=== PATIENT | female | born 1980 | race Caucasian/White ===

== ENCOUNTER 2016-10-04 14:13 | Emergency (ER) | payer SELFPAY ==
[2016-10-04 14:19] VITALS: BP 108/72
--- NOTE | 2016-10-04 15:04 | DR.GENAD ---
HPI - PCP Primary Care Physician: KAM - Complaint/Symptoms Chief Complaint Doctors Comments: "I feel weak all over." Chief Complaint:: PT. STATES YESTERDAY SHE HAD AN EPISODE OF CHEST PAIN THAT RADIATED TO HER JAW AND HER NECK. PT. C/O FATIGUE, WEAKNESS, AND A SORE THROAT TODAY. - Nurses notes reviewed Nurses Notes Review: Yes - Source History Provided: Patient - Mode of Arrival Mode of Arrival: Ambulatory - Timing Onset of Chief Complaint: 10/03/16 Came on: Suddenly - Duration Duration: Constant Duration: Days - Severity Severity: Moderate - Modifying Factors Worsens:: activity PMH - PMH Past Medical History: Yes Past Medical History: Anxiety, GERD Past Medical History Comment: OVARIAN CYST Past Surgical History: Yes Surgical History: , Hysterectomy Past Surgical History Comment: PARTIAL HYSTERECTOMY - Family History History of Family Medical Conditions: No - Social History Does patient currently use any type of tobacco product: Yes Have you used tobacco products in the last 12 months: Yes Type of Tobacco Use: Cigarettes Does any household member use tobacco: No Alcohol Use: None Do you use any recreational Drugs:: Yes (MARIJUANA) Lives With: Family Lives Where: Home - infectious screening In the last 2 months have you had wt loss of >10#?: NO Have you had fever, night sweats or hemotysis?: No Have you traveled outside the country in the last 6 months?: No Isolation: Standard ROS - Review of Systems Constitutional: Malaise, Weakness, Loss of Appetite Eyes: No Symptoms Reported ENTM: No Symptoms Reported Respiratoy: No Symptoms Reported Cardiovascular: No Symptoms Reported Gastrointestinal/Abdominal: No Symptoms Reported Genitourinary: No Symptoms Reported Neurological: No Symptoms Reported Musculoskeletal: No Symptoms Reported Integumentary: No Symptoms Reported Hematologic/Lymphatic: No Symptoms Reported Endocrine: No Symptoms Reported Psychiatric: No Symptoms Reported All Other Systems: Reviewed and Negative PE - Vital Signs Vitals: Temperature 98.0 F Pulse Rate 82 Respiratory Rate 17 Blood Pressure 108/72 O2 Sat by Pulse Oximetry 98 - General Limitations: No Limitations General Appearance: Alert, In No Apparent Distress - Head Head Exam: Normal Inspection - Eyes Eye exam: Normal Appearance, PERRL, EOMI - ENT ENT Exam: Normal Exam, Normal Oropharynx, Mucous Membranes Moist Nose Exam: Normal Nose Exam Mouth Exam: Normal Inspection Throat Exam: Normal Inspection - Neck Neck Exam: Normal Inspection, Full ROM, Trachea Midline - Chest Chest Inspection: Normal Inspection - Respiratory Respiratory Exam: Normal Lung Sounds Bilat - Cardiovascular Cardiovascular Exam: Regular Rate, Normal Rhythm, Normal Heart Sounds - Abdominal Exam Abdominal Exam: Normal Inspection, Normal Bowel Sounds, Soft - Extremities Extremities Exam: Normal Inspection, Full ROM - Back Back Exam: Normal Inspection, Full ROM - Psychiatric Psychiatric Exam: Normal Affect, Normal Mood - Skin Skin Exam: Warm, Dry, Intact ROR - Labs Reviewed Result Diagrams: 10/04/16 14:57 10/04/16 14:57 Laboratory: WBC 8.8 X10^3/uL (3.6-10.0) 10/04/16 14:57 RBC 4.51 X10^6/uL (3.5-5.4) 10/04/16 14:57 Hgb 14.7 g/dL (12.0-16.0) 10/04/16 14:57 Hct 42.9 % (36.0-47.0) 10/04/16 14:57 MCV 95.1 fL (80.0-100.0) 10/04/16 14:57 MCH 32.7 pg (27.0-34.0) 10/04/16 14:57 MCHC 34.3 g/dL (33.0-35.0) 10/04/16 14:57 RDW 13.0 % (11.6-16.5) 10/04/16 14:57 Plt Count 248 X10^3/uL (150.0-450.0) 10/04/16 14:57 MPV 7.7 fL (7.4-11.0) 10/04/16 14:57 Neut % 60.9 % (42.0-75.0) 10/04/16 14:57 Lymph % 29.0 % (21.0-51.0) 10/04/16 14:57 Sterling % 7.5 % (0.0-13.0) 10/04/16 14:57 Eos % 1.8 % (0.9-2.9) 10/04/16 14:57 Baso % 0.8 % (0.2-1.0) 10/04/16 14:57 Neut # 5.3 x10^3/uL (2.2-4.8) H 10/04/16 14:57 Lymph # 2.5 X10^3/uL (1.3-2.9) 10/04/16 14:57 Sterling # 0.7 x10^3/uL (0.3-0.8) 10/04/16 14:57 Eos # 0.2 x10^3/uL (0.0-0.2) 10/04/16 14:57 Baso # 0.1 X10^3/uL (0.0-0.1) 10/04/16 14:57 Absolute Nucleated RBC 0.0 /100WBC 10/04/16 14:57 Sodium 140 mmol/L (136-145) 10/04/16 14:57 Corrected Sodium TNP 10/04/16 14:57 Potassium 3.6 mmol/L (3.5-5.1) 10/04/16 14:57 Chloride 104 mmol/L (98-107) 10/04/16 14:57 Carbon Dioxide 25.1 mmol/L (21-32) 10/04/16 14:57 BUN 17 mg/dL (7-18) 10/04/16 14:57 Creatinine 1.00 mg/dL (0.55-1.02) 10/04/16 14:57 Est GFR (MDRD) Af Amer > 60 (>60) 10/04/16 14:57 Est GFR (MDRD) Non-Af > 60 (>60) 10/04/16 14:57 Glucose 79 mg/dL (65-99) 10/04/16 14:57 Calcium 8.7 mg/dL (8.5-10.1) 10/04/16 14:57 Corrected Calcium TNP 10/04/16 14:57 Total Bilirubin 0.40 mg/dL (0.2-1.0) 10/04/16 14:57 AST 16 Units/L (15-37) 10/04/16 14:57 ALT 18 Units/L (12-78) 10/04/16 14:57 Alkaline Phosphatase 55 Units/L (46-116) 10/04/16 14:57 Creatine Kinase 155 Units/L (26-192) 10/04/16 14:57 CK-MB (CK-2) < 1.0 ng/mL (0-4.0) 10/04/16 14:57 CK/CKMB % Calc 0.7 % (<4) 10/04/16 14:57 Troponin I < 0.02 ng/mL (0-1.5) 10/04/16 14:57 Total Protein 7.8 g/dL (6.4-8.2) 10/04/16 14:57 Albumin 4.5 g/dL (3.4-5.0) 10/04/16 14:57 Globulin 3.3 g/dL (2.5-4.5) 10/04/16 14:57 Albumin/Globulin Ratio 1.4 Ratio (1.1-2.1) 10/04/16 14:57 Specimen Type Clean catch urine 10/04/16 14:55 Urine Color Yellow (YELLOW) 10/04/16 14:55 Urine Appearance Cloudy (CLEAR) 10/04/16 14:55 Urine pH 7.0 (5.0 - 8.0) 10/04/16 14:55 Ur Specific [place] 1.015 (1.000-1.030) 10/04/16 14:55 Urine Protein Negative (NEGATIVE) 10/04/16 14:55 Urine Glucose (UA) Negative (NEGATIVE) 10/04/16 14:55 Urine Ketones Negative (NEGATIVE) 10/04/16 14:55 Urine Occult Blood 1+ (NEGATIVE) 10/04/16 14:55 Urine Nitrite Negative (NEGATIVE) 10/04/16 14:55 Urine Bilirubin Negative (NEGATIVE) 10/04/16 14:55 Urine Urobilinogen Normal (NORMAL) 10/04/16 14:55 Ur Leukocyte Esterase Negative (NEGATIVE) 10/04/16 14:55 Urine RBC Rare /HPF (NEGATIVE) 10/04/16 14:55 Urine WBC None seen /HPF (NEGATIVE) 10/04/16 14:55 Ur Squamous Epith Cells Moderate /HPF (NEGATIVE) 10/04/16 14:55 Amorphous Sediment 4+ /HPF (NEGATIVE) 10/04/16 14:55 Urine Bacteria Trace /HPF (NEGATIVE) 10/04/16 14:55 Ur Culture Indicated? No/not indicated 10/04/16 14:55 Monoscreen Negative (NEGATIVE) 10/04/16 14:57 Streptococcus Screen Negative (NEGATIVE) 10/04/16 14:42 - Diagnosis Discharge Problem: Fatigue, Malaise and fatigue - Discharge Plan Disposition: 01 HOME, SELF-CARE Condition: Stable - Follow ups/Referrals Follow ups/Referrals: NFD,None [Primary Care Provider] - 3 days - Instructions Instructions: Panic Attacks, [id number], Rehydration, Adult, Panic Attacks
[2016-10-04 15:06] LABS: BILIRUBIN,URINE NEGATIVE (NEGATIVE); BLOOD/HEMOGLOBIN,URINE 1+ (NEGATIVE); GLUCOSE, URINE NEGATIVE (NEGATIVE); KETONES,URINE NEGATIVE (NEGATIVE); LEUKOCYTE ESTERASE ,URINE NEGATIVE (NEGATIVE); NITRITES,URINE NEGATIVE (NEGATIVE); PROTEIN,URINE NEGATIVE (NEGATIVE); UROBILINOGEN,URINE NORMAL (NORMAL)
[2016-10-04 15:06] LABS: BASOPHILS # (AUTO) 0.1 X10^3/uL (0.0-0.1); BASOPHILS % (AUTO) 0.8 % (0.2-1.0); EOSINOPHILS # (AUTO) 0.2 x10^3/uL (0.0-0.2); EOSINOPHILS % (AUTO) 1.8 % (0.9-2.9); HEMATOCRIT 42.9 % (36.0-47.0); HEMOGLOBIN 14.7 g/dL (12.0-16.0); LYMPHOCYTES # (AUTO) 2.5 X10^3/uL (1.3-2.9); MEAN CORPUSCULAR HEMOGLOBIN 32.7 pg (27.0-34.0); MEAN CORPUSCULAR HGB CONC 34.3 g/dL (33.0-35.0); MEAN CORPUSCULAR VOLUME 95.1 fL (80.0-100.0); MEAN PLATELET VOLUME 7.7 fL (7.4-11.0); MONOCYTES # (AUTO) 0.7 x10^3/uL (0.3-0.8); MONOCYTES % (AUTO) 7.5 % (0.0-13.0); NEUTROPHILS # (AUTO) 5.3 x10^3/uL (2.2-4.8); NEUTROPHILS % (AUTO) 60.9 % (42.0-75.0); PLATELET COUNT 248 X10^3/uL (150.0-450.0); RED BLOOD COUNT 4.51 X10^6/uL (3.5-5.4); WHITE BLOOD COUNT 8.8 X10^3/uL (3.6-10.0)
[2016-10-04 15:19] LABS: AMORPHOUS SEDIMENT,UR 4+ /HPF (NEGATIVE); APPEARANCE,URINE CLOUDY (CLEAR); BACTERIA,URINE TRACE /HPF (NEGATIVE); COLOR,URINE YELLOW (YELLOW); RBC,URINE RARE /HPF (NEGATIVE); SQUAMOUS EPITHELIAL CELL,UR MODERATE /HPF (NEGATIVE)
[2016-10-04 15:23] LABS: BLOOD UREA NITROGEN 17 mg/dL (7-18); CALCIUM 8.7 mg/dL (8.5-10.1); CARBON DIOXIDE 25.1 mmol/L (21-32); CHLORIDE 104 mmol/L (98-107); GLUCOSE 79 mg/dL (65-99); SODIUM 140 mmol/L (136-145); TROPONIN I < 0.02 ng/mL (0-1.5); eGFR BLACK RACES > 60 (>60); eGFR NON BLACK RACES > 60 (>60)
[2016-10-04 15:26] LABS: ALANINE AMINOTRANSFERASE 18 Units/L (12-78); ALBUMIN 4.5 g/dL (3.4-5.0); ALKALINE PHOSPHATASE 55 Units/L (46-116); ASPARTATE AMINO TRANSFERASE 16 Units/L (15-37); CKMB % 0.7 % (<4); CREATINE KINASE 155 Units/L (26-192); CREATINE KINASE MB < 1.0 ng/mL (0-4.0); TOTAL PROTEIN 7.8 g/dL (6.4-8.2)
--- NOTE | 2016-10-04 15:37 | RAD ---
Chest, two views Indication: Weakness, chest wall pain. Comparison: None Findings: The cardiac silhouette is unremarkable. The lungs are clear without focal infiltrates, ple ural effusion, or pneumothorax. The bony thorax is unremarkable. Impression: No acute cardiopulmonary disease. Reported By:
[2016-10-04 16:04] LABS: MONOTEST NEGATIVE (NEGATIVE)
== END 2016-10-04 16:19 | disposition home or self-care (01) ==
LOC: ER 14:23
DX: R53.83 Other fatigue (principal)
CPT/HCPCS: 36415; 71020; 80053; 81001; 82550; 82553; 84484; 85025; 86308; 87070; 87880; 93005; 93010; 99283